=== PATIENT | male | born 1945 | race African-American/Black ===

== ENCOUNTER 2021-01-04 08:23 | Emergency (ER) | payer MEDICARE ==
[~2021-01-04] VITALS: Ht 165.1 cm; Wt 65.0 kg
[~2021-01-04 08:23] MED LIST: ATEN-42; T3 PO
[2021-01-04] MEDS ORDERED: IBUPROFEN 600MG TABLET PO ONE (09:15)
[2021-01-04] MEDS ORDERED: IBUP-2029 MT (10:13)
[2021-01-04 11:13] VITALS: BP 148/77
== END 2021-01-04 11:16 | disposition home or self-care (01) ==
LOC: ER 08:23
DX: S42.472A Displaced transcondylar fracture of left humerus, initial encounter for closed fracture (principal); I10 Essential (primary) hypertension; M19.90 Unspecified osteoarthritis, unspecified site; X58.XXXA Exposure to other specified factors, initial encounter; Y93.9 Activity, unspecified; Y92.9 Unspecified place or not applicable
CPT/HCPCS: 29105; 73070; 99283; A4565